=== PATIENT | female | born 1985 | race Caucasian/White ===

== ENCOUNTER → 2021-08-05 | Outpatient (CLI) | payer OTHER | END | disposition home or self-care (01) | LOC: PPH VACUNA 09:00 | PROVIDERS: ATTEND Emergency Medicine Pediatric Emergency Medicine | DX: Z23 Encounter for immunization (principal) ==

== ENCOUNTER 2022-01-18 11:05 | Emergency (ER) | payer OTHER ==
[~2022-01-18] VITALS: Ht 162.6 cm; Wt 64.9 kg
== END 2022-01-18 15:23 | disposition home or self-care (01) ==
LOC: ER 11:05
DX: R10.2 Pelvic and perineal pain (principal); N93.8 Other specified abnormal uterine and vaginal bleeding

== ENCOUNTER 2025-08-20 03:34 | Emergency (ER) | payer OTHER ==
[~2025-08-20] VITALS: Ht 162.6 cm; Wt 62.6 kg
[2025-08-20 04:05] VITALS: BP 115/65; O2SAT 99
[2025-08-20] MEDS ORDERED: ZOFRAN8 MG PO (04:06)
[2025-08-20] MEDS ORDERED: DIPHENHYDRAMINE HCL 50 MG/ML VIAL 1ML IV STA (05:48)
[2025-08-20] MEDS ORDERED: METHYLPREDNISOLONE SOD SUCC 125 MG VIAL IV STA (05:48)
[2025-08-20] MEDS ORDERED: FAMOTIDINE/PF 20 MG/2 ML VIAL IV PUSH STA (05:49)
[2025-08-20] MEDS ORDERED: EPINEPHRINE HCL/PF 1 MG/ML AMPUL SUBCUTANEO STA (05:51)
[2025-08-20] MEDS ORDERED: DIPHENHYDRAMINE HCL 50 MG/ML VIAL 1ML ONE (05:53)
[2025-08-20] MEDS ORDERED: METHYLPREDNISOLONE SOD SUCC 125 MG VIAL ONE (05:53)
[2025-08-20] MEDS ORDERED: EPINEPHRINE HCL/PF 1 MG/ML AMPUL ONE (05:53)
[2025-08-20] MEDS ORDERED: FAMOTIDINE/PF 20 MG/2 ML VIAL ONE (05:53)
[2025-08-20 06:31] LABS: URINE APPEARANCE Clear; URINE BILIRRUBIN Negative (NEGATIVE); URINE BLOOD Negative; URINE COLOR Yellow; URINE GLUCOSE Negative (NEGATIVE); URINE KETONE Negative (NEGATIVE); URINE LEUKOCYTE Trace; URINE NITRATE Negative; URINE PROTEIN Negative (NEGATIVE); URINE UROBILINOGEN 1.0 E.U./dl
[2025-08-20 06:34] LABS: URINE EPITHELIAL CELLS 4.4 uL (0.0-38.8); URINE RBC 2.0 uL (0.0-20.8); URINE WBC 40.2 uL (0.0-23.2)
[2025-08-20 06:47] LABS: URINE BACTERIA 3.5 uL (0.0-1933); URINE CAST 0.00 uL (0.0-1.40)
[2025-08-20] MEDS ORDERED: CEFTRIAXONE SODIUM 1,000 MG VIAL IV STA (07:23)
[2025-08-20] MEDS ORDERED: PEPCID40 MG PO (07:26)
[2025-08-20] MEDS ORDERED: BENADRYL25 MG PO (07:26)
[2025-08-20] MEDS ORDERED: CEFTRIAXONE SODIUM 1,000 MG VIAL ONE (07:27)
== END 2025-08-20 07:36 ==
LOC: ER 03:34
PROVIDERS: General Practice
DX: L50.8 Other urticaria (principal); Z85.3 Personal history of malignant neoplasm of breast

== ENCOUNTER 2025-08-28 01:26 | Emergency (ER) | payer OTHER ==
[~2025-08-28] VITALS: Ht 162.6 cm; Wt 62.6 kg
[~2025-08-28 01:26] MED LIST: BENADRYL25 MG PO; PEPCID40 MG PO; ZOFRAN8 MG PO
[2025-08-28] MEDS ORDERED: KETOROLAC TROMETHAMINE 30 MG VIAL IV STA (02:55)
[2025-08-28] MEDS ORDERED: KETOROLAC TROMETHAMINE 30 MG VIAL ONE (03:18)
[2025-08-28 03:49] LABS: BASO % 0.2 % (0.1-1.2); EOS # 0.01 (0.04-0.54); EOS % 0.1 % (0.7-7.0); LYMPH # 0.45 (1.18-3.74); LYMPH % 5.6 % (19.3-53.1); MEAN PLATELET VOLUME 9.90 fl (9.4-12.4); MONO # 0.31 (0.24-0.82); MONO % 3.8 % (4.7-12.5); NEUT # 7.21 (1.56-6.13); NEUT % 89.6 % (34.0-71.1); RED CELL DISTRIBUTION WIDTH 17.2 % (11.6-14.4)
[2025-08-28 04:03] LABS: BUN CREA RATIO 25.0 (7.0-25.0); CREATININE SERUM 0.72 mg/dL (0.55-1.02); GFR 91.14; GLUCOSE FASTING 117.0 mg/dL (65-100); INR 1.03; OSMOLALITY SERUM 282.0 MOSM/KG (275-295)
[2025-08-28] MEDS ORDERED: TRAMADOL HCL 50 MG TABLET PO STA (06:53)
[2025-08-28] MEDS ORDERED: ENOXAPARIN SODIUM 60 MG/0.6 ML SYRINGE SUBCUTANEO STA (06:53)
[2025-08-28] MEDS ORDERED: ENOXAPARIN SODIUM 60 MG/0.6 ML SYRINGE SUBCUTANEO ONE (07:26)
[2025-08-28 09:16] LABS: D DIMER 0.7 MG/L
[2025-08-28] MEDS ORDERED: NORFLEX100MG PO (10:09)
[2025-08-28] MEDS ORDERED: ORPHENADRINE CITRATE 30 MG/ML AMPUL IM ONE (10:15)
[2025-08-28] MEDS ORDERED: ORPHENADRINE CITRATE 30 MG/ML AMPUL ONE (10:17)
== END 2025-08-28 10:39 | disposition home or self-care (01) ==
LOC: ER 01:27
PROVIDERS: General Practice
DX: M79.89 Other specified soft tissue disorders (principal); M79.641 Pain in right hand